=== PATIENT | female | born 1945 | race Caucasian/White ===

== ENCOUNTER 2017-06-15 08:44 | Observation (INO) | payer MEDICARE, BC ==
[2017-06-15] MEDS ORDERED: NORMAL SALINE 1,000 ML IV ONE (09:52)
[2017-06-15 10:08] LABS: Hematocrit 27.5 % (37.0-47.0); Hemoglobin 8.3 gm/dL (12.5-16.0); Mean Cell Volume 110.9 fl (78-100); Mean Corpuscular Hemoglobin 33.5 pg (27-31); Mean Corpuscular Hgb Conc 30.2 g/dl (32-36); Mean Platelet Volume 9.4 fl (6.0-9.5); NRBC# 0.1 k/mm3 (0-1); Neutrophil # 4.7 K/mm3 (1.3-6.0); Neutrophil % 69.7 % (42-75.0); Platelet Count 135 K/mm3 (150-450); Red Blood Count 2.48 M/mm3 (4.2-5.4); White Blood Count 6.8 K/mm3 (4.0-10.5)
[2017-06-15 10:09] LABS: Urine Bilirubin Negative (NEGATIVE); Urine Blood Negative /ul (NEGATIVE); Urine Ketone Negative (NEGATIVE); Urine Nitrite Negative (NEGATIVE); Urine Protein 15 mg/dL (NEGATIVE); Urine Urobilinogen Normal (NORMAL)
[2017-06-15 10:17] LABS: Urine Appearance Clear; Urine Bacteria None Seen; Urine Color Yellow; Urine RBC None Seen /hpf (0-5); Urine WBC None Seen /hpf (0-5)
[2017-06-15 10:20] LABS: Albumin * 3.8 gm/dl (3.4-5.0); BUN/Creatinine Ratio 7.4 (9.0-21.6); Bilirubin, Total 0.4 mg/dL (0.0-1.1); Ca. Corrected For Albumin 9.1 mg/dL (8.4-10.2); Calcium * 9.3 mg/dL (7.9-10.9); Carbon Dioxide 24.6 mmol/L (24-32.6); Potassium 3.6 mmol/L (3.4-4.6); Total Protein 7.7 gm/dL (6.2-8.2)
[2017-06-15] MEDS ORDERED: DIATRIZOATE MEGLUMINE, SODIUM 30 ML BTL ONE (10:57)
[2017-06-15 14:01] LABS: Hematocrit 24.9 % (37.0-47.0)
[2017-06-15 14:02] LABS: Hemoglobin 7.6 gm/dL (12.5-16.0)
--- NOTE | 2017-06-15 14:30 | ERNOTE ---
Medical Problem HPI - Narrative Date of Service: 06/15/17 - General Chief Complaint: Nausea/Vomiting Time Seen by Provider: 06/15/17 09:42 Source: patient, family Exam Limitations: no limitations - Immun/Allergies/Home Medications Immunizations: IMMUNIZATION HX Immunizations Up to Date Yes History of Influenza Vaccine No Hx Pneumococcal Vaccination Yes Allergies/Adverse Reactions: Allergies No Known Allergies Allergy (Verified 06/15/17 09:21) Home Medications: HOME MEDICATIONS Levothyroxine Sodium [Synthroid] 125 mcg PO DAILY 11/26/15 [Last Taken 11/26/15] Promethazine HCl 12.5 mg PO Q6H PRN 06/15/17 [Last Taken Unknown] - History of Present History Narrative: Patient presents to the ED for vomiting. She relates that she has been vomiting for the last month. She tries to eat and vomits. She was briefly hospitalized at [facility] 2 weeks ago. No abdominal pain. No fever. no blood in stool or vomit. nothing makes this better or worse. no CP or SOB. Timing: constant, getting worse Modifying Factors - (Improves): Present: other - nothing Modifying Factors - (Worsens): Present: other - eating Review of Systems - Review of Systems Constitutional: Absent: fever Respiratory: Absent: shortness of breath Cardiology: Absent: chest pain Gastrointestinal/Abdominal: Present: vomiting. Absent: abdominal pain Genitourinary: Absent: dysuria All Other Systems: All systems neg except as marked - Patient's Past Medical History Patient History - Medical: Diabetes Type 2, Hypothyroidism Patient History - Cardiac/Respiratory: Hypertension Patient History - Cancer: No Hx of Cancer Patient History - Surgical Procedures: Appendectomy, Cholecystectomy, Total Knee Replacement, Other, Hernia Repair Patient History - Other: None LMP (females 10-50): Menopausal - Family History Mother Family History - Medical: , Diabetes Type 2 Family History - Cardiac/Respiratory: Coronary Heart Disease Father Family History - Medical: Family History - Cardiac/Respiratory: CVA/Stroke - Social History Living Situations: home Abuse History: No History of abuse Psych History: No pertinent hx Smoking Status: Former smoker Have you smoked in the past 12 months: No Alcohol Use: none Drug Use: none - Immunizations Immunizations Up to Date: Yes Hx Pneumococcal Vaccination: Yes History of Influenza Vaccine: No Physical Exam - Physical Exam General Appearance: Present: alert, no apparent distress Head Exam: Present: normal inspection, no evidence of injury Eye Exam: Normal inspection: bilateral, PERRL: bilateral Ears, Nose, Throat: Present: normal ENT inspection Neck: Present: normal inspection Respiratory: Present: no respiratory distress Cardiovascular/Chest: Present: regular rate, rhythm, normal peripheral pulses Gastrointestinal/Abdominal: Present: normal bowel sounds, nontender, soft Back Exam: Absent: CVA tenderness (R), CVA tenderness (L) Extremity Exam: Present: other - no deformity Neurological Exam: Present: alert, normal mood/affect, no motor/sensory deficits Skin Exam: Present: normal color, warm/dry, other - with female RN presents large left breast mass. 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 ED Progress - Results and Orders Patient's Lab Results:: I have reviewed the patient's lab results. - Vital Signs Patient's Vital Signs:: I have reviewed the patient's vital signs. Vital Signs: Vital Signs 06/15/17 06/15/17 06/15/17 09:15 10:51 11:06 Temperature 36.6 C Pulse Rate 122 H 106 H 109 H Respiratory 16 Rate Blood Pressure 164/83 133/80 129/90 O2 Sat by Pulse 100 94 95 Oximetry 06/15/17 06/15/17 06/15/17 11:23 12:00 13:07 Temperature Pulse Rate 102 H 106 H 97 Respiratory 15 17 Rate Blood Pressure 145/85 146/85 O2 Sat by Pulse 97 98 97 Oximetry 06/15/17 06/15/17 13:17 13:30 Temperature Pulse Rate 94 89 Respiratory 16 Rate Blood Pressure 142/64 137/63 O2 Sat by Pulse 96 95 Oximetry - EKG EKG read: Interp. by me EKG Comments: Sinus Tach. Rate 104. Non-specific changes, no STEMI - CT/Ultrasound CT/Ultrasound Narrative: I reviewed CT report per radiology. - Progress/Reassessment Chief Complaint: Nausea/Vomiting Progress Note-Subjective: 06/15/17 14:27 IV fluids given. i spoke with Dr Gonzalez and Dr Barron. Dr Gonzalez will admit with consult to Dr Barron. Patient agreeable. Departure Clinical Impression: Vomiting, Anemia, Adrenal mass, left, Breast mass - Departure Disposition: [facility] Condition: Stable
[2017-06-15] MEDS ORDERED: FLU VACC QS2017-18(6MOS UP)/PF 60 MCG/0.5 ML SYRINGE IM ONE (15:41)
--- NOTE | 2017-06-15 16:16 | HP ---
Chief Complaint - Chief Complaint Date of Service: 06/15/17 Time of Service: 16:10 Chief Complaint: nausea/vomiting History of Present Illness: Shani Allen, is a 71-year-old white female, with previous medical history of hypertension, diabetes mellitus type 2, hyperlipidemia, hypothyroidism history of breast cancer who was admitted on 06/15/2017 because of persistent nausea and vomiting. The patient says that for the last 1 month she has been getting nauseous and started vomiting whenever she puts anything in her mouth. She started getting weaker and so she went to our emergency room today. Her Hb was 7.3 and her Na was 143. Her CTS of the abdomen and pelvis an enlarging left adrenal mass which could be malignant with possible metastasis to the spine. It also showed colitis vs diverticulitis. . She was admitted for further evaluation and treatment. - Patient's Past Medical History Patient History - Medical: Diabetes Type 2, Hypothyroidism Patient History - Cardiac/Respiratory: Hypertension Patient History - Cancer: No Hx of Cancer Patient History - Surgical Procedures: Appendectomy, Cholecystectomy, Total Knee Replacement, Other, Hernia Repair Patient History - Other: None LMP (females 10-50): Menopausal - Family History Mother Family History - Medical: , Diabetes Type 2 Family History - Cardiac/Respiratory: Coronary Heart Disease Family History - Cancer: No pertinent family hx Father Family History - Medical: Family History - Cardiac/Respiratory: CVA/Stroke Family History - Cancer: No pertinent family hx - Social History Living Situations: spouse Abuse History: No History of abuse Psych History: No pertinent hx Smoking Status: Former smoker Have you smoked in the past 12 months: No Do you dip or chew tobacco: No Patient requests Smoking Cessation Consult: No Initiate information on Smoking Cessation: No Alcohol Use: none Drug Use: none - Immunizations Immunizations Up to Date: Yes Hx Pneumococcal Vaccination: Yes History of Influenza Vaccine: No Review Of Systems (GEN) - Review of Systems Generalized/Overall Review: Present: Weakness. Absent: Chills, Fever EENTM: Present: No Symptoms Reported Respiratory: Present: Shortness of Breath. Absent: Cough, Orthopnea Cardiac: Absent: Chest Pain, Palpitations Abdominal: Present: Nausea, Vomiting. Absent: Abdominal Pain Genitourinary: Absent: Frequency, Hesitancy Musculoskeletal: Present: Joint Pain Neurological: Present: Headache Immunizations: IMMUNIZATION HX Immunizations Up to Date Yes History of Influenza Vaccine No Hx Pneumococcal Vaccination Yes Allergies/Adverse Reactions: Allergies Allergy/AdvReac Type Severity Reaction Status Date / Time No Known Allergies Allergy Verified 06/15/17 15:43 Home Medications: HOME MEDICATIONS Levothyroxine Sodium [Synthroid] 125 mcg PO DAILY 11/26/15 [Last Taken 11/26/15] Promethazine HCl 12.5 mg PO Q6H PRN 06/15/17 [Last Taken Unknown] Exam - Exam Vital Signs: Vital Signs - Last Taken Temp 36.6 C 06/15/17 15:36 Pulse 101 H 06/15/17 15:36 Resp 18 06/15/17 15:36 BP 155/75 06/15/17 15:36 Pulse Ox 98 06/15/17 15:36 Constitutional: Present: Alert, Oriented x3, Cooperative ENT Exam: Present: hearing grossly normal Eye Exam: bilateral eye: normal inspection, PERRL, EOMI Neck: Present: supple Back Exam: Present: no CVA tenderness Breasts: Present: Other - positive hard fixed mass with inverted nipple, left breast Cardiovascular/Chest: Present: regular rate, rhythm, no JVD, no murmur Abdomen: Present: Normal bowel sounds, soft, nontender, obese, other - equivocal mass Extremity: Present: no pedal edema, no calf tenderness Diagnostic Studies: Laboratory Results WBC 6.8 K/mm3 (4.0-10.5) 06/15/17 10:00 RBC 2.48 M/mm3 (4.2-5.4) L 06/15/17 10:00 Hgb 7.6 gm/dL (12.5-16.0) L* 06/15/17 13:55 Hct 24.9 % (37.0-47.0) L 06/15/17 13:55 MCV 110.9 fl (78-100) H 06/15/17 10:00 MCH 33.5 pg (27-31) H 06/15/17 10:00 MCHC 30.2 g/dl (32-36) L 06/15/17 10:00 RDW 17.0 % (11.5-14.0) H 06/15/17 10:00 Plt Count 135 K/mm3 (150-450) L 06/15/17 10:00 MPV 9.4 fl (6.0-9.5) 06/15/17 10:00 Immature Gran % (Auto) 3.00 % (0.001-0.429) H 06/15/17 10:00 Immature Gran # (Auto) 0.20 K/mm3 (0.000-0.0310) H 06/15/17 10:00 Neutrophils % 69.7 % (42-75.0) 06/15/17 10:00 Lymphocytes % 20.1 % (20-51) 06/15/17 10:00 Monocytes % 5.8 % (0.0-9) 06/15/17 10:00 Eosinophils % 0.7 % (0.0-3.0) 06/15/17 10:00 Basophils % 0.7 % (0.0-1.0) 06/15/17 10:00 Nucleated RBC % 0.1 k/mm3 (0-1) 06/15/17 10:00 Neutrophils # 4.7 K/mm3 (1.3-6.0) 06/15/17 10:00 Lymphocytes # 1.4 k/mm3 (1.5-3.5) L 06/15/17 10:00 Monocytes # 0.4 k/mm3 (0.0-1.0) 06/15/17 10:00 Eosinophils # 0.1 k/mm3 (0.0-0.7) 06/15/17 10:00 Absolute Basophils 0.1 k/mm3 (0.0-0.1) 06/15/17 10:00 Sodium 141 mmol/L (132-142) 06/15/17 10:00 Plasma Sodium 143 mmol/L (130-142) H 06/15/17 10:00 Potassium 3.6 mmol/L (3.4-4.6) 06/15/17 10:00 Chloride 104 mmol/L (97-106) 06/15/17 10:00 Carbon Dioxide 24.6 mmol/L (24-32.6) 06/15/17 10:00 Anion Gap 16.0 mmol/L (6.8-13.8) H 06/15/17 10:00 BUN 10 mg/dL (3-23) 06/15/17 10:00 Creatinine 1.36 mg/dL (0.4-1.4) 06/15/17 10:00 Est GFR (Non-Af Amer) 41 mL/min (60-130) L 06/15/17 10:00 BUN/Creatinine Ratio 7.4 (9.0-21.6) L 06/15/17 10:00 Random Glucose 204 mg/dL (70-110) H 06/15/17 10:00 Calcium 9.3 mg/dL (7.9-10.9) 06/15/17 10:00 Calcium Adj for Albumin 9.1 mg/dL (8.4-10.2) 06/15/17 10:00 Total Bilirubin 0.4 mg/dL (0.0-1.1) 06/15/17 10:00 AST 16 U/L (0-48) 06/15/17 10:00 ALT 14 U/L (19-67) L 06/15/17 10:00 Alkaline Phosphatase 94 U/L (50-170) 06/15/17 10:00 Troponin I Less than 0.017 ng/ml (0.00-0.10) 06/15/17 10:00 Total Protein 7.7 gm/dL (6.2-8.2) 06/15/17 10:00 Albumin 3.8 gm/dl (3.4-5.0) 06/15/17 10:00 Lipase 211 U/L (73-393) 06/15/17 10:00 Urine Color Yellow 06/15/17 09:55 Urine Appearance Clear 06/15/17 09:55 Urine pH 6.0 pH (5.0-7.0) 06/15/17 09:55 Ur Specific [place] 1.020 SP.GR. (1.005-1.010) 06/15/17 09:55 Urine Protein 15 mg/dL (NEGATIVE) H 06/15/17 09:55 Urine Glucose (UA) Negative mg/dL (NEGATIVE) 06/15/17 09:55 Urine Ketones Negative mg/dL (NEGATIVE) 06/15/17 09:55 Urine Blood Negative /ul (NEGATIVE) 06/15/17 09:55 Urine Nitrate Negative (NEGATIVE) 06/15/17 09:55 Urine Bilirubin Negative mg/dl (NEGATIVE) 06/15/17 09:55 Prot Sulfosalicylic Acd Negative mg/dL (0) 06/15/17 09:55 Urine Urobilinogen Normal EU/dl (NORMAL) 06/15/17 09:55 Ur Leukocyte Esterase Negative /ul (NEGATIVE) 06/15/17 09:55 Urine RBC None seen /hpf (0-5) 06/15/17 09:55 Urine WBC None seen /hpf (0-5) 06/15/17 09:55 Ur Epithelial Cells None seen /hpf (0-5) 06/15/17 09:55 Urine Bacteria None seen (NONE) 06/15/17 09:55 Urine Culture Comments No culture indicated 06/15/17 09:55 Stool Occult Blood Negative 06/15/17 11:37 Blood Type A Negative 06/15/17 13:55 Antibody Screen Negative 06/15/17 13:55 Assessment/Plan - Assessment/Plan (1) Nausea & vomiting Assessment: will keep patient NPO. continue with IVF. start IV protonix. get consult with Dr. Barron for possible EGD. Problem: Chronic Qualifiers: Vomiting Intractability: intractable (2) Colitis Assessment: vs diverticultis. will keep patient NPO. get cosnult with Dr. Barron. start IV Cipro/Flagyl Problem: Suspected (3) Adrenal mass, left Assessment: will do hormonal studies to see if functioning on outpatient basis . refer her to endocrinology in [facility]. Problem: Chronic (4) Anemia Assessment: do stool for occult blood and anemia work up. will get consult with Dr. Barron for possible endoscopic procedure Problem: Chronic Qualifiers: Anemia type: unspecified type Qualified Code(s): D64.9 - Anemia, unspecified (5) Breast mass Assessment: refuses mammogram. has a h/o breast cancer- DCIS. Problem: Chronic (6) Diabetes mellitus type 2 in obese Problem: Chronic (7) Hypothyroidism Problem: Chronic (8) Hypertension Problem: Chronic Qualifiers: Hypertension type: essential hypertension Qualified Code(s): I10 - Essential (primary) hypertension
[2017-06-15] MEDS ORDERED: ONDANSETRON HCL/PF 2 MG/ML VIAL IV PRN (16:38)
[2017-06-15] MEDS: PANTOPRAZOLE SODIUM 40 MG in NORMAL SALINE 100 ML IV SCH (16:59)
[2017-06-15 17:24] LABS: Hemoglobin A1C 5.5 % (4.00-6.0)
[2017-06-15 17:29] LABS: Iron 108 mcg/dL (35-120); Transferrin Sat. (% Sat.) 37 % (15-55)
[2017-06-15] MEDS: CIPROFLOXACIN IN 5 % DEXTROSE 400 MG/200 ML BAG IV SCH (17:40)
[2017-06-15] MEDS ORDERED: ACETAMINOPHEN 325 MG TABLET PO PRN (17:48)
[2017-06-15 18:14] LABS: Folate 4.2 ng/mL (>5.4)
--- NOTE | 2017-06-15 18:23 | CONS ---
[facility] - General Date of Service: 06/15/17 Source: patient, RN/MD, RN notes reviewed, old records Exam Limitations: no limitations - History of Present Illness Timing/Duration: other - She has been having pernicious vomiting after almost all po intake for " a long time" Marked weight loss "down to small pants" Modifying Factors - (Worsens): Reports: eating Modifying Factors - (Improves): Reports: other - not eating Allergies/Adverse Reactions: Allergies No Known Allergies Allergy (Verified 06/15/17 15:43) Home Medications: Home Medications Medication Instructions Recorded Last Taken Levothyroxine Sodium [Synthroid] 125 mcg PO DAILY 11/26/15 11/26/15 Promethazine HCl 12.5 mg PO Q6H PRN 06/15/17 Unknown - Patient's Past Medical History Patient History - Medical: Diabetes Type 2, Hypothyroidism, Other - Lobular carcinoma of left breast--excisional biopsy 2007 ?positive margin, no adjuvant treatment Patient History - Cardiac/Respiratory: Hypertension Patient History - Cancer: No Hx of Cancer Patient History - Surgical Procedures: Appendectomy, Cancer Surgery - left breast excisional biopsy, Cholecystectomy, Total Knee Replacement, Other, Hernia Repair Patient History - Other: None LMP (females 10-50): Menopausal - Family History Mother Family History - Medical: , Diabetes Type 2 Family History - Cardiac/Respiratory: Coronary Heart Disease Family History - Cancer: No pertinent family hx Father Family History - Medical: Family History - Cardiac/Respiratory: CVA/Stroke Family History - Cancer: No pertinent family hx - Social History Living Situations: spouse Abuse History: No History of abuse Psych History: No pertinent hx Smoking Status: Former smoker Have you smoked in the past 12 months: No Do you dip or chew tobacco: No Patient requests Smoking Cessation Consult: No Initiate information on Smoking Cessation: No Alcohol Use: none Drug Use: none - Immunizations Immunizations Up to Date: Yes Hx Pneumococcal Vaccination: Yes History of Influenza Vaccine: No Procedures LOCAL EXCIS BREAST LES (03/11/08) Medications - Medications Current Medications: Current Medications Pantoprazole Sodium 40 mg/ (Sodium Chloride) 100 mls @ 400 mls/hr IV Q24H DELFINA Stop: 07/15/17 16:46 Last Admin: 06/15/17 16:59 Dose: 400 mls/hr Ciprofloxacin/Dextrose (Cipro) 400 mg in 200 mls @ 200 mls/hr IV Q12H DELFINA PRN Reason: Protocol Stop: 07/15/17 16:46 Last Admin: 06/15/17 17:40 Dose: 200 mls/hr Review of Systems - Review of Systems Generalized/Overall Review: Present: Weakness, Fatigue, Weight loss EENTM: Present: No Symptoms Reported Respiratory: Present: No Symptoms Reported Cardiac: Present: No Symptoms Reported Abdominal: Present: Nausea, Vomiting. Absent: Abdominal Pain Genitourinary: Present: No Symptoms Reported Musculoskeletal: Present: Back Pain Neurological: Present: Headache Skin: Present: No Symptoms Reported Physical Examination - Exam Vital Signs: Vital Signs - Last Taken Temp 36.6 C 06/15/17 15:36 Pulse 99 06/15/17 16:21 Resp 18 06/15/17 15:36 BP 155/75 06/15/17 15:36 Pulse Ox 98 06/15/17 15:36 O2 Oxygen Delivery Method Room Air Constitutional: Present: Alert, Oriented x3, Cooperative, Mild distress ENT Exam: Present: normal ENT inspection Eye Exam: bilateral eye: normal inspection Neck: Present: full range of motion Breasts: Present: Other - large hard left breast mass with skin changes, no ulceration Cardiovascular/Chest: Present: regular rate, rhythm Abdomen: Present: soft, nontender, obese, other - eventration in area of mesh hernia patch Skin Exam: Present: pallor Neurologic: Present: 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 Could be chronic GI blood loss or marrow problem----studies pending Problem: Chronic Qualifiers: Anemia type: unspecified type Qualified Code(s): D64.9 - Anemia, unspecified (3) Colitis Diagnosis(s): Patient has normal WBC. denies abdominal pain and states bowels regular. The CT report states findings to suggest inflammation are equivocal only Problem: Suspected (4) Nausea & vomiting Diagnosis(s): She may have gastropathy, gastroparesis, or pyloric narrowing. The anemia may be from chronic gastric bleeding. Pamphlets on EGD were reviewed and given. Scheduled for EGD in AM----biopsies and possible dilation if pyloris narrow Problem: Chronic Qualifiers: Vomiting Intractability: intractable (5) Breast mass Diagnosis(s): known previous infiltrating lobular carcinoma with possible positive margin Problem: Chronic
[2017-06-15] MEDS: metroNIDAZOLE/SODIUM CHLORIDE 500 MG/100 ML BAG IV SCH (18:48)
[2017-06-16] MEDS: metroNIDAZOLE/SODIUM CHLORIDE 500 MG/100 ML BAG IV SCH ×2 (02:07→10:35)
[2017-06-16] MEDS: CIPROFLOXACIN IN 5 % DEXTROSE 400 MG/200 ML BAG IV SCH (04:37)
[2017-06-16 06:18] LABS: Mean Corpuscular Hemoglobin 33.3 pg (27-31); Mean Corpuscular Hgb Conc 30.3 g/dl (32-36); Mean Platelet Volume 9.4 fl (6.0-9.5); NRBC# 0.1 k/mm3 (0-1); Neutrophil # 3.1 K/mm3 (1.3-6.0); Neutrophil % 68.5 % (42-75.0); Platelet Count 93 K/mm3 (150-450); Red Cell Distribution Width 16.5 % (11.5-14.0); White Blood Count 4.5 K/mm3 (4.0-10.5)
[2017-06-16 06:23] LABS: Hematocrit 23.1 % (37.0-47.0)
[2017-06-16] MEDS ORDERED: diphenhydrAMINE HCL 50 MG/ML VIAL IV ONE ×2 (06:25→12:31)
[2017-06-16] MEDS ORDERED: ACETAMINOPHEN 325 MG TABLET PO ONE (06:25)
[2017-06-16] MEDS ORDERED: FUROSEMIDE 10 MG/ML VIAL IV PRN (06:25)
[2017-06-16] MEDS ORDERED: ACETAMINOPHEN 325 MG TABLET PO PRN (06:41)
[2017-06-16] MEDS ORDERED: diphenhydrAMINE HCL 50 MG/ML VIAL IV PRN (06:42)
--- NOTE | 2017-06-16 07:06 | PN ---
Subjective - Date and Time Seen Date: 06/16/17 Time: 06:35 Subjective Narrative: Patient seen today in bed AOX3 no acute distress, she denies dizziness, rectal bleeding. pt stated she had bowel movement but it was very loose and no melena. pt agreeable to blood transfusion, plan of care discussed with pt she verbalized understanding and agrees. Objective - Review of Systems Generalized/Overall Review: Reports: No Symptoms Reported EENTM: Reports: No Symptoms Reported Respiratory: Reports: No Symptoms Reported Cardiac: Reports: No Symptoms Reported Abdominal: Reports: No Symptoms Reported Genitourinary Symptoms: Reports: No Symptoms Reported Musculoskeletal Complaints: Reports: No Symptoms Reported Neurological: Reports: No Symptoms Reported Skin: Reports: No Symptoms Reported Endocrine: Reports: No Symptoms Reported - Vitals Vitals: Last Vital Signs Temp 36.7 C 06/16/17 02:52 Pulse 82 06/16/17 02:52 Resp 18 06/16/17 02:52 BP 124/62 06/16/17 02:52 Pulse Ox 95 06/16/17 02:52 - Abnormal Lab Findings Abnormal Lab Findings: Abnormal Lab Results 06/16/17 Range/Units 06:16 RBC 2.10 L (4.2-5.4) M/mm3 Hgb 7.0 L* (12.5-16.0) gm/dL Hct 23.1 L* (37.0-47.0) % MCV 110.0 H (78-100) fl MCH 33.3 H (27-31) pg MCHC 30.3 L (32-36) g/dl RDW 16.5 H (11.5-14.0) % Plt Count 93 L (150-450) K/mm3 Immature Gran % (Auto) 2.20 H (0.001-0.429) % Immature Gran # (Auto) 0.10 H (0.000-0.0310) K/mm3 Lymphocytes # 1.0 L (1.5-3.5) k/mm3 - Exam Constitutional: Present: Alert, Oriented x3, Cooperative, Well developed, Middle aged ENT Exam: Present: hearing grossly normal Neck: Present: full range of motion Breasts: Present: Other - left breast mass Respiratory: Present: chest non-tender, normal breath sounds, no respiratory distress Cardiovascular/Chest: Present: normal peripheral pulses, regular rate, rhythm, no chest tenderness, no edema Abdomen: Present: Normal bowel sounds, soft, nontender, nondistended, hernia /Rectal: Present: Exam deferred Extremity: Present: normal range of motion Skin Exam: Present: normal color, warm/dry, no cyanosis Neurologic: Present: oriented x 3 Appearance: Present: appropriate appearance, appropriate insight Eye contact: Present: cooperative, good eye contact Assessment/Plan Plan Narrative: Anemia stool for occult blood pending On adm hgb 7.6---->7.0 Plan to transfuse 2UPRBC and monitor H/H 1hr post transfusion Nausea & vomiting- resolved Pt reporting having nausea and vomiting x1 month Keep NPO and continue with IVF hydration pt denies N/V overnight Colitis vs diverticultis. will keep patient NPO. Dr. Barron. Continue with IV Cipro/Flagyl Adrenal mass, left Seen on CT Enlarging large adrenal mass will do hormonal studies to see if functioning on outpatient basis . Refer her to endocrinology in [facility]. Left Breast mass Refuses mammogram. Diabetes mellitus type 2 in obese Accu-check AC+HS Resume home medication Hypothyroidism- stable Problem: Chronic Continue home medications Hypertension- stable May resume home medications Code status: DNR VTEppx: SCD GI ppx: Protonix Time 25 minutes - Problems/Diagnosis (1) Adrenal mass, left Problem: Chronic (2) Anemia Problem: Chronic Qualifiers: Anemia type: unspecified type Qualified Code(s): D64.9 - Anemia, unspecified (3) Breast mass Problem: Chronic (4) Diabetes mellitus type 2 in obese Problem: Chronic (5) Hypertension Problem: Chronic Qualifiers: Hypertension type: essential hypertension Qualified Code(s): I10 - Essential (primary) hypertension (6) Hypothyroidism Problem: Chronic (7) Nausea & vomiting Problem: Chronic Qualifiers: Vomiting Intractability: intractable
[2017-06-16] MEDS: LEVOTHYROXINE SODIUM 125 MCG TABLET PO SCH (07:30)
[2017-06-16] MEDS ORDERED: RINGER'S SOLUTION,LACTATED 1,000 ML IV ONE (11:15)
[2017-06-16] MEDS ORDERED: METHYLPREDNISOLONE SOD SUCC/PF 40 MG/ML VIAL IV ONE (12:30)
[2017-06-16] MEDS ORDERED: WATER FOR INJ BACTERIOSTATIC IV ONE (12:45)
[2017-06-16] MEDS ORDERED: METHYLPREDNISOLONE SOD SUCC IV ONE (12:45)
[2017-06-16] MEDS: PANTOPRAZOLE SODIUM 40 MG in NORMAL SALINE 100 ML IV SCH (16:10)
[2017-06-16 17:22] LABS: Hematocrit 32.3 % (37.0-47.0); Hemoglobin 10.3 gm/dL (12.5-16.0)
--- NOTE | 2017-06-17 06:41 | PN ---
Subjective - Date and Time Seen Date: 06/17/17 Time: 06:33 Subjective Narrative: Patient seen today in bed AOX3 no acute distress, she denies melena,nausea, vomiting and tolerated CLD last night. pt anticipating discharge home later today. plan of care discussed she verbalized understanding and agrees. Objective - Review of Systems Generalized/Overall Review: Reports: No Symptoms Reported EENTM: Reports: No Symptoms Reported Respiratory: Reports: No Symptoms Reported Cardiac: Reports: No Symptoms Reported Abdominal: Reports: No Symptoms Reported Genitourinary Symptoms: Reports: No Symptoms Reported Musculoskeletal Complaints: Reports: No Symptoms Reported Neurological: Reports: No Symptoms Reported Skin: Reports: No Symptoms Reported Endocrine: Reports: No Symptoms Reported - Vitals Vitals: Last Vital Signs Temp 37.0 C 06/17/17 02:00 Pulse 76 06/17/17 02:56 Resp 16 06/17/17 02:00 BP 148/76 06/17/17 02:00 Pulse Ox 92 06/17/17 02:00 - Abnormal Lab Findings Abnormal Lab Findings: Abnormal Lab Results 06/16/17 Range/Units 17:20 Hgb 10.3 L (12.5-16.0) gm/dL Hct 32.3 L (37.0-47.0) % - Exam Constitutional: Present: Alert, Oriented x3, Cooperative, Well developed, No distress ENT Exam: Present: hearing grossly normal Neck: Present: full range of motion Breasts: Present: Other - left breast lobular mass Respiratory: Present: chest non-tender, lungs clear, normal breath sounds, no respiratory distress Cardiovascular/Chest: Present: normal peripheral pulses, regular rate, rhythm, no chest tenderness, no edema Abdomen: Present: Normal bowel sounds, soft, nontender, nondistended, no rebound tenderness, hernia /Rectal: Present: Exam deferred Extremity: Present: normal range of motion, non-tender, normal inspection, no pedal edema Skin Exam: Present: normal color, warm/dry, no cyanosis Neurologic: Present: oriented x 3 Appearance: Present: appropriate appearance Eye contact: Present: cooperative Thoughts: Present: normal thought pattern Assessment/Plan Plan Narrative: Colitis vs diverticultis. S/P EGD - gastritis , bleeding possible was from the gastritis Full Liquid diet Dr. Barron following. Continue with IV Cipro/Flagyl Anemia- resolving stool for occult blood pending On adm hgb 7.6---->7.0---->10.3 Plan to transfuse 2UPRBC and monitor H/H 1hr post transfusion Nausea & vomiting- resolved Pt reporting having nausea and vomiting x1 month Keep NPO and continue with IVF hydration pt denies N/V overnight Adrenal mass, left Seen on CT Enlarging large adrenal mass will do hormonal studies to see if functioning on outpatient basis . Refer her to endocrinology in [facility]. Left Breast mass Refuses mammogram. Diabetes mellitus type 2 in obese Accu-check AC+HS Resume home medication Hypothyroidism- stable Problem: Chronic Continue home medications Hypertension- stable May resume home medications Code status: DNR VTEppx: SCD GI ppx: Protonix Time 20 minutes - Problems/Diagnosis (1) Adrenal mass, left Problem: Chronic (2) Anemia Problem: Chronic Qualifiers: Anemia type: unspecified type Qualified Code(s): D64.9 - Anemia, unspecified (3) Breast mass Problem: Chronic (4) Diabetes mellitus type 2 in obese Problem: Chronic (5) Hypertension Problem: Chronic Qualifiers: Hypertension type: essential hypertension Qualified Code(s): I10 - Essential (primary) hypertension (6) Hypothyroidism Problem: Chronic (7) Nausea & vomiting Problem: Chronic Qualifiers: Vomiting Intractability: intractable
[2017-06-17] MEDS: LEVOTHYROXINE SODIUM 125 MCG TABLET PO SCH (07:03)
[2017-06-17 08:07] VITALS: BP 148/82
--- NOTE | 2017-06-17 10:13 | OR ---
Operative Report - Dictated Report Narrative: Operative Report Date of operation: 06/16/2017 Preoperative diagnosis: Anemia. Nausea vomiting Postoperative diagnosis: Hiatal hernia. Severe gastritis with healing superficial ulcerations. Duodenitis with healing superficial ulcerations. ( pathology and CLOtest pending) Operation: EGD with biopsies Surgeon: Dr Barron Anesthesia: EUN IBARRA CRNA Indications for procedure: The patient is a 71-year-old female with pernicious nausea and vomiting and anemia Findings: Hiatal hernia, severe gastropathy with evidence of chronic bleeding. Severe duodenitis. Narrative of procedure: The patient was identified preoperatively, and prior to the administration of anesthetic a multidisciplinary timeout was observed With the patient in the recumbent position, a bite-block was placed, intravenous sedation administered, and the patient's eyes covered with a towel. The flexible fiberoptic gastroscope was advanced into the posterior pharynx which appeared normal. The supraglottic larynx appeared markedly edematous with swelling of the false vocal cords. The cords appeared normal, moved well, and opposed in the midline. The scope was advanced under direct vision into the proximal esophagus which appeared normal. The esophagus appeared freely distensible with normal mucosa. The esophageal mucosa appeared normal down to the gastroesophageal junction which was sharp with mild inflammation. There was a large sliding hiatal hernia. There was bleeding from the GE junction but no Lexi-Nolasco tear or varices. The GE junction appeared normally distensible. The scope was advanced into the stomach which was insufflated with air. Immediately apparent was severe distal gastritis with edema. There were several areas of small superficial healing ulcerations. Retroflex view of the gastric fundus revealed gutierrez gastropathy and demonstrated the hiatal hernia. Scope was redirected toward the pylorus. The pylorus appeared patent. The scope was advanced into the duodenal bulb which appeared inflamed with edema and very small superficial areas of healing ulceration. There was retropulsion of the duodenal mucosa and bile reflux with contractions. The scope was advanced further to the horizontal portion of the duodenum which appeared normal , specifically the villous architecture appeared well preserved and clear bile was present. The scope was slowly withdrawn through the duodenal bulb with confirmation that no active ulcer was present. The scope was withdrawn into the stomach and accounting representative biopsies of gastric mucosa obtained for CLOtest and pathology. The biopsy sites were seen to be hemostatic. The insufflated air was removed from the the stomach , and the scope withdrawn into the hiatal hernia segment. Again bleeding from the GE junction was noted however no kristen bleeding site could be identified and the bleeding was minimal. The scope was withdrawn from the patient, and the procedure terminated. The patient tolerated the anesthetic and procedure well without complication and was transferred back to her room awake and in stable condition. Reviewed and electronically signed
--- NOTE | 2017-06-17 10:24 | DS ---
(1) Nausea & vomiting Problem: Resolved Qualifiers: Vomiting Intractability: intractable (2) Colitis Diagnosis(s): vs diverticulitis, unlikelydue to paucity GIT symptoms. Problem: Suspected (3) Adrenal mass, left Problem: Chronic (4) Anemia Diagnosis(s): s/p BT Problem: Chronic Qualifiers: Anemia type: unspecified type Qualified Code(s): D64.9 - Anemia, unspecified (5) Breast mass Diagnosis(s): Breast Cancer Problem: Chronic (6) Diabetes mellitus type 2 in obese Problem: Chronic (7) Hypothyroidism Problem: Chronic (8) Hypertension Problem: Chronic Qualifiers: Hypertension type: essential hypertension Qualified Code(s): I10 - Essential (primary) hypertension Description of Stay: Shani Allen, is a 71-year-old white female, with previous medical history of hypertension, diabetes mellitus type 2, hyperlipidemia, hypothyroidism history of breast cancer who was admitted on 06/15/2017 because of persistent nausea and vomiting. The patient says that for the last 1 month she has been getting nauseous and started vomiting whenever she puts anything in her mouth. She started getting weaker and so she went to our emergency room today. Her Hb was 7.3 and her Na was 143. Her CTS of the abdomen and pelvis an enlarging left adrenal mass which could be malignant with possible metastasis to the spine. It also showed probable colitis vs diverticulitis. . She was admitted and was started on IV Cipro flagyl/Cipro and IV Protonix. Her Hb went down to 7 and she was ransfued [address] Barron was consulted and he performed an EGD which showed severe gastritis/duodenitis with superficial erosions which was likely the source of her anemia. He also saw larynreal edema. Her IV Cipro / Flagy were stopped and she was given IV solumedrol and benadryl. She is doing better this morniong and is tolerating full liquids from clear liquids. We will discharge her today and will refer her to [facility] fo her breast cancer, adrenal mass, and possible mets to the spine. . Procedures Performed: see notes below List Procedures: EGD with biopsy Discharge Disposition: Home self care Disposition: Home self-care Condition: Stable Discharge Diet: Full Liquids - then progress to soft diet as tolerated Referrals: Oetken,Victoria Y, DO [Primary Care Provider] - Problem Oriented Discharge Instructions to Patient/Family: Hypertension, Easy- to-Read Additional Patient Instructions (free text): Please make a TCM appointment as discharge, if applicable. Thank you! Sita at ext [phone]. Follow up appointment with Dr. Bueno on 06/24/17 at 2:00pm. Make outpatient appt. with [facility] Oncology/Hematology and Endocrine please. Prescriptions (Any new or edited meds): Acetaminophen [Tylenol] 650 mg PO Q6H PRN #30 tablet PRN Reason: Pain/Fever Pantoprazole Sodium [Protonix] 40 mg PO DAILY #30 tab Complete Home Medications List: Complete Home Medication List: Levothyroxine Sodium [Synthroid] 125 mcg PO DAILY 11/26/15 Promethazine HCl 12.5 mg PO Q6H PRN 06/15/17 Acetaminophen [Tylenol] 650 mg PO Q6H PRN #30 tablet 06/17/17 Pantoprazole Sodium [Protonix] 40 mg PO DAILY #30 tab 06/17/17
[2017-06-17 17:32] LABS: P-ANCA Titer DNR titer (<1:20)
== END 2017-06-17 12:07 | disposition home or self-care (01) ==
LOC: ER 08:44 → MS 14:18
PROVIDERS: ADMIT Internal Medicine; ATTEND Internal Medicine
PROC: 0DB68ZZ Excision of Stomach, Via Natural or Artificial Opening Endoscopic (ICD-10-PCS; principal; 2017-06-16 11:15)
DX: K29.00 Acute gastritis without bleeding (principal); D64.9 Anemia, unspecified; E11.9 Type 2 diabetes mellitus without complications; R11.2 Nausea with vomiting, unspecified; K52.9 Noninfective gastroenteritis and colitis, unspecified; R19.09 Other intra-abdominal and pelvic swelling, mass and lump; C50.912 Malignant neoplasm of unspecified site of left female breast; I10 Essential (primary) hypertension; E03.9 Hypothyroidism, unspecified; E78.5 Hyperlipidemia, unspecified; Z87.891 Personal history of nicotine dependence; Z23 Encounter for immunization
CPT/HCPCS: 36415; 43239; 74177; 80053; 81001; 82272; 82607; 82728; 82746; 83036; 83540; 83550; 83690; 84466; 84484; 85014; 85018; 85025; 86021; 86850; 86900; 87040; 87081; 88305; 88312; 88313; 90686; 93005; 96365; 96366; 96367; 96375; 96376; 99284; G0008; G0378; J2405; P9016

== ENCOUNTER 2017-08-20 10:09 | Emergency (ER) | payer MEDICARE, BC ==
[2017-08-20] MEDS ORDERED: MORPHINE SULFATE 2 MG/ML DISP.SYRIN IV ONE (10:55)
[2017-08-20] MEDS ORDERED: ONDANSETRON HCL/PF 2 MG/ML VIAL IV ONE (10:55)
--- NOTE | 2017-08-20 10:56 | ERNOTE ---
Medical Problem HPI - Narrative Date of Service: 08/20/17 - General Chief Complaint: General Assessment Time Seen by Provider: 08/20/17 10:48 Source: patient, family, RN notes reviewed, old records Exam Limitations: no limitations - Immun/Allergies/Home Medications Immunizations: IMMUNIZATION HX Immunizations Up to Date Yes History of Influenza Vaccine No Hx Pneumococcal Vaccination Yes Allergies/Adverse Reactions: Allergies No Known Allergies Allergy (Verified 08/20/17 10:22) Home Medications: HOME MEDICATIONS Levothyroxine Sodium [Synthroid] 125 mcg PO DAILY 11/26/15 [Last Taken 11/26/15] Promethazine HCl 12.5 mg PO Q6H PRN 06/15/17 [Last Taken Unknown] Acetaminophen [Tylenol] 650 mg PO Q6H PRN #30 tablet 06/17/17 [Last Taken Unknown] Pantoprazole Sodium [Protonix] 40 mg PO DAILY #30 tab 06/17/17 [Last Taken Unknown] Ondansetron [Zofran Odt] 8 mg PO Q8H PRN #12 tab 08/20/17 [Last Taken Unknown] oxyCODONE HCL/ACETAMINOPHEN [Oxycodone-Acetaminophen 5-325] 1 each PO Q6H PRN # 20 tablet 08/20/17 [Last Taken Unknown] - History of Present History Narrative: 71 year old female brought to the ED by her for weakness and fatigue. She is also having low back pain. She has multiple myeloma and is supposed to be starting chemotherapy soon. She was recently hospitalized with a hemoglobin of 7. She was found to have gastritis on EGD but no specific GI bleeding. She states that she is probably anemic again. She denies vomiting or diarrhea but has been having nausea. She has been taking Tylenol for pain. Review of Systems - Review of Systems Constitutional: Present: weakness, fatigue, malaise, decreased activity level. Absent: fever, chills EYE: Present: no symptoms reported ENT: Present: no symptoms reported Respiratory: Absent: shortness of breath, cough Cardiology: Absent: chest pain, palpitations, syncope, edema Gastrointestinal/Abdominal: Present: nausea. Absent: vomiting, diarrhea, abdominal pain Genitourinary: Absent: dysuria, hematuria Musculoskeletal: Present: back pain, muscle pain. Absent: neck pain, joint swelling Skin: Absent: rash, lesions Neurological: Absent: headache, dizziness/light-headedness Endocrine: Present: no symptoms reported Hematologic/Lymphatic: Absent: easy bruising, easy bleeding Psych: Present: no symptoms reported - Patient's Past Medical History Patient History - Medical: Diabetes Type 2, Hypothyroidism Patient History - Cardiac/Respiratory: Hypertension Patient History - Cancer: Breast, Myeloma Patient History - Surgical Procedures: Appendectomy, Cholecystectomy, EGD, Total Knee Replacement, Other - Lumpectomy, Hernia Repair Patient History - Other: None LMP (females 10-50): Menopausal - Family History Mother Family History - Medical: , Diabetes Type 2 Family History - Cardiac/Respiratory: Coronary Heart Disease Family History - Cancer: No pertinent family hx Father Family History - Medical: Family History - Cardiac/Respiratory: CVA/Stroke Family History - Cancer: No pertinent family hx - Social History Living Situations: spouse Abuse History: No History of abuse Psych History: No pertinent hx - Immunizations Immunizations Up to Date: Yes Hx Pneumococcal Vaccination: Yes History of Influenza Vaccine: No Physical Exam - Physical Exam General Appearance: Present: wd/wn, alert, no apparent distress Neck: Present: normal inspection, nontender, supple Respiratory: Present: no respiratory distress, normal breath sounds, no accessory muscle use, lungs clear Cardiovascular/Chest: Present: no murmur, normal peripheral pulses, tachycardia Extremity Exam: Present: normal inspection, normal range of motion Neurological Exam: Present: alert, oriented, normal mood/affect, no motor/ sensory deficits Skin Exam: Present: warm/dry, pallor ED Progress - Results and Orders Patient's Lab Results:: I have reviewed the patient's lab results. - Vital Signs Patient's Vital Signs:: I have reviewed the patient's vital signs. Vital Signs: Vital Signs 08/20/17 10:16 Temperature 36.2 C L Pulse Rate 119 H Respiratory 12 Rate Blood Pressure 114/56 O2 Sat by Pulse 100 Oximetry - Progress/Reassessment Chief Complaint: General Assessment Progress:: Improved Progress Note-Subjective: 08/20/17 12:[address] Sullivan regarding impaired renal function and possible admission. She recommended giving a 2 L fluid bolus here and rechecking the patient's creatinine. Fluids ordered. Plan - Plan Plan: Patient reports feeling better after 2 L of NS. Her creatinine has dropped from 2.47 to 2.19. She currently denies any pain after having Morphine 2 mg IVP. To have BMP done on Tuesday, patient in agreement with plan. Departure Clinical Impression: Low back pain Qualifiers: Chronicity: chronic Back pain laterality: unspecified Sciatica presence: without sciatica Qualified Code(s): M54.5 - Low back pain Acute renal failure Qualifiers: Acute renal failure type: unspecified Qualified Code(s): N17.9 - Acute kidney failure, unspecified Multiple myeloma Qualifiers: Multiple myeloma remission status: not in remission Qualified Code(s): C90.00 - Multiple myeloma not having achieved remission - Departure Disposition: Home Follow Up Needed Condition: Stable Instructions: Acute Kidney Injury Additional Instructions: Contact Dr. Bueno to repeat your labs on Tuesday Drink more liquids - at least 8 glasses a day (water would be helpful) Return to ER if symptoms worsen Referrals: Victoria Bueno, [Primary Care Provider] - Prescriptions: Ondansetron [Zofran Odt] 8 mg PO Q8H PRN #12 tab PRN Reason: Nausea oxyCODONE HCL/ACETAMINOPHEN [Oxycodone-Acetaminophen 5-325] 1 each PO Q6H PRN # 20 tablet PRN Reason: Pain
[2017-08-20] MEDS ORDERED: MORPHINE SULFATE 4 MG/ML SYRG ONE (11:12)
[2017-08-20] MEDS ORDERED: ONDANSETRON HCL/PF 2 MG/ML VIAL ONE (11:12)
[2017-08-20 11:15] LABS: Hematocrit 26.6 % (37.0-47.0); Hemoglobin 8.6 gm/dL (12.5-16.0); Mean Cell Volume 101.1 fl (78-100); Mean Corpuscular Hemoglobin 32.7 pg (27-31); Mean Corpuscular Hgb Conc 32.3 g/dl (32-36); Mean Platelet Volume 8.7 fl (6.0-9.5); Neutrophil # 4.3 K/mm3 (1.3-6.0); Neutrophil % 68.9 % (42-75.0); Platelet Count 176 K/mm3 (150-450); Red Blood Count 2.63 M/mm3 (4.2-5.4); Red Cell Distribution Width 18.6 % (11.5-14.0); White Blood Count 6.3 K/mm3 (4.0-10.5)
[2017-08-20 11:29] LABS: Albumin * 3.7 gm/dl (3.4-5.0); Anion Gap 25.8 mmol/L (6.8-13.8); BUN/Creatinine Ratio 46.6 (9.0-21.6); Bilirubin, Total 0.2 mg/dL (0.0-1.1); Ca. Corrected For Albumin 9.6 mg/dL (8.4-10.2); Calcium * 9.7 mg/dL (7.9-10.9); Carbon Dioxide 11.8 mmol/L (24-32.6); Potassium 3.6 mmol/L (3.4-4.6)
[2017-08-20 11:32] LABS: Urine Bilirubin Negative (NEGATIVE); Urine Blood Negative /ul (NEGATIVE); Urine Ketone Negative (NEGATIVE); Urine Nitrite Negative (NEGATIVE); Urine Protein 15 mg/dL (NEGATIVE); Urine Specific Gravity 1.015 SP.GR. (1.005-1.010); Urine Urobilinogen Normal (NORMAL); Urine pH 5.5 pH (5.0-7.0)
[2017-08-20 11:38] LABS: Urine Appearance Slightly Cloudy; Urine Color Yellow
[2017-08-20 11:39] LABS: Urine Bacteria TRACE; Urine RBC 0-5 /hpf (0-5); Urine WBC 0-5 /hpf (0-5)
[2017-08-20] MEDS: NORMAL SALINE 1,000 ML IV ONE ×2 (12:23→13:32)
[2017-08-20 15:37] VITALS: BP 132/64
== END 2017-08-20 15:35 | disposition home or self-care (01) ==
LOC: ER 10:09
DX: M54.5 Low back pain (principal); N17.9 Acute kidney failure, unspecified; C90.00 Multiple myeloma not having achieved remission; E11.9 Type 2 diabetes mellitus without complications; E03.9 Hypothyroidism, unspecified; I10 Essential (primary) hypertension; Z85.3 Personal history of malignant neoplasm of breast
CPT/HCPCS: 36415; 80053; 81001; 82565; 85025; 86850; 86900; 96374; 96375; 99284; J2405

== ENCOUNTER 2018-05-10 06:18 | Inpatient (IN) ==
[~2018-05-10 06:18] MED LIST: RINGER'S SOLUTION,LACTATED 1,000 ML IV PRN; ceFAZolin SODIUM 1 GM VIAL IV PRN
--- NOTE | 2018-05-10 07:30 | ANES ---
Anesthesia Pre Procedure Eval Vitals/Labs: Last Vital Signs Temp 36.7 C 05/10/18 06:38 Pulse 68 05/10/18 06:38 Resp 18 05/10/18 06:38 BP 122/62 05/10/18 06:38 Pulse Ox 95 05/10/18 06:38 HOME MEDICATIONS Levothyroxine Sodium [Synthroid] 125 mcg PO DAILY 11/26/15 [Last Taken 05/09/18] Promethazine HCl 12.5 mg PO Q6H PRN 06/15/17 [Last Taken Unknown] calcium carbonate 600 mg calcium (1,500 mg) tablet 600 mg PO DAILY tab [Last Taken 05/09/18] letrozole 2.5 mg tablet 2.5 mg PO DAILY 04/17/18 [Last Taken 05/09/18] lisinopril 20 mg-hydrochlorothiazide 12.5 mg tablet 1 tab PO BID 04/17/18 [Last Taken 05/10/18] ferrous sulfate 325 mg (65 mg iron) tablet 325 mg PO DAILY tab 05/03/18 [Last Taken 05/09/18] palbociclib 100 mg capsule 100 mg PO DAILY 05/03/18 [Last Taken 05/09/18] vitamin B complex tablet 1 tab PO DAILY 05/03/18 [Last Taken 05/09/18] HYDROcodone/ACETAMINOPHEN [Hydrocodone-Acetamin 5-325 mg] 1 tab PO Q6H PRN 05/10 [Last Taken 05/10/18 04:00] Allergies/Adverse Reactions: Allergies Allergy/AdvReac Type Severity Reaction Status Date / Time No Known Allergies Allergy Verified 05/10/18 07:00 - Planned Procedure Planned Procedure: Reversed RTS, CR w/pinning Right 5th Medication List Reviewed:: Yes Allergies Verified: Yes Medical History (Last Updated 05/10/18 @ 07:04 by Anusha Goldberg) Finger fracture, right (Acute) Onset Date: 04/11/18 Humerus fracture (Acute) Onset Date: 04/11/18 Hypercholesterolemia (Chronic) Onset Date: Unknown Diabetes mellitus, type II (Chronic) Onset Date: Unknown CHF (congestive heart failure) (Chronic) Onset Date: Unknown Adrenal mass (Chronic) Onset Date: Unknown Hypothyroidism (Chronic) Onset Date: Unknown Hypertension (Chronic) Onset Date: Unknown Metastatic cancer to bone (Acute) Onset Date: Unknown Breast cancer (Acute) Onset Date: Unknown Hypothyroid Surgical History (Last Reviewed 05/10/18 @ 06:59 by Anusha Goldberg) H/O removal of cyst Onset Date: Unknown History of appendectomy Onset Date: Unknown History of arthroplasty of left knee Onset Date: 11/08/07 History of arthroplasty of right knee Onset Date: 07/08/07 History of esophagogastroduodenoscopy (EGD) Onset Date: 06/16/17 Hx of cholecystectomy Onset Date: 1974 Umbilical hernia Onset Date: Unknown Family History (Last Reviewed 05/10/18 @ 07:00 by Anusha Goldberg) Mother Myocardial infarction Diabetes 1.5, managed as type 2 Father CVA (cerebral vascular accident) Brother 2 brothers, unknown cause of Brother 3 brothers Leukemia Cancer Sister COPD (chronic obstructive pulmonary disease) - Family Anesthesia History Family History:: no untoward family reactions to anesthesia, no familial bleeding tendencies, no family history of clotting disorders, no family history of premature - Airway/Neck/Teeth Within Normal Limits:: Yes Denture Type: Full- Upper & Lower Neck Exam: limited range of motion Mallampatti Score: 1 Thyromental (T-M) distance: > 6 cm Mandibulo Hyoid distance: > 3 cm - Respiratory Respiratory: lungs clear Smoking Status: Former smoker Discussed smoking cessation including day of surgery: No Sleep Apnea currently treated: No Sleep Apnea by current assessment: No Discussed Risks/Treatment of SILVIA: No - Cardiovascular Tolerates Activity: Fair Heart Sounds: S1 & S2, Regular - Anesthesia Assessment and Plan ASA Class: PS, III Anesthesia Type Plan: General LMA, Block - Right ultrasound guided interscalene nerve block for postop analgesia
[2018-05-10] MEDS ORDERED: BUPIVACAINE HCL 50 ML VIAL IJ ONE (10:57)
[2018-05-10] MEDS ORDERED: RINGER'S SOLUTION,LACTATED 1,000 ML IV PRN (11:16)
[2018-05-10] MEDS ORDERED: MORPHINE SULFATE 2 MG/ML DISP.SYRIN IV PRN (11:16)
[2018-05-10] MEDS ORDERED: ONDANSETRON HCL/PF 2 MG/ML VIAL IV PRN (11:16)
[2018-05-10] MEDS ORDERED: ACETAMINOPHEN 500 MG TABLET PO PRN (11:16)
[2018-05-10] MEDS ORDERED: ZOLPIDEM TARTRATE 5 MG TABLET PO PRN (11:16)
[2018-05-10] MEDS ORDERED: MAGNESIUM HYDROXIDE 30 ML UDC PO PRN (11:16)
[2018-05-10] MEDS ORDERED: diphenhydrAMINE HCL 50 MG/ML VIAL IV PRN (11:16)
[2018-05-10] MEDS ORDERED: MAG HYDROX/ALUMINUM HYD/SIMETH 30 ML UDC PO PRN (11:16)
--- NOTE | 2018-05-10 11:16 | OR ---
Operative Report - Dictated Report Narrative: Date: 05/10/2018 Physician: True Cr M.D. Co-surgeon: Yvan Hurt M.D. Patrol Commander: Torrey Saha PA-C Preoperative diagnosis: Closed right comminuted proximal humerus fracture, closed right small finger proximal phalanx fracture with intra-articular extension Postoperative diagnosis: Closed right comminuted proximal humerus fracture, closed right small finger proximal phalanx fracture with intra-articular extension Procedure: Reverse right total shoulder arthroplasty, closed reduction percutaneous fixation of right small finger proximal phalanx fracture with intra -articular extension, intraoperative interpretation of x-rays Anesthesia: General plus regional plus local Complications: None Estimated blood loss: 100 Milliliters Specimens: Bone for disposal Retained implants: Beauty Noteduy delta xtend standard cemented monoblock humeral epiphysis size 1 with Size 8 cemented stem, Delta Xtend size 38 + 9 humeral PE cup, Delta Xtend size 38 Glenosphere, Delta Xtend Cementless CARREON coated centered Metaglene, 4.5 mm Delta Xtend locking screws 30,42, 4.5 mm Delta Xtend size 18x2 screws, smooth 0.35 Jo-Ann wires with associated Jurgan's balls Drains: None Indications: Mrs. Allen Is a 72 year-old female who has been followed in my clinic with complaints of shoulder pain consistent proximal humerus fracture as well as a small finger fracture. Physical exam and diagnostic imaging were consistent with his complaints and concern for comminuted displaced proximal humerus fracture as well as a intra-articular right small finger proximal phalanx fracture. Conservative measures have failed including, but not limited to, passage of time, activity modification, medications, physical therapy/home exercise program, or injections. The risks, benefits, and alternatives were discussed in clinic. The risks being , bleeding, infection, blood clots, nerve, tendon, ligament, blood vessel injury, instability, malposition of implants, wear, persistent pain, arthrosis, stiffness, need for prolonged therapy, need for additional procedures, and persistent symptoms. Consent was obtained in the clinic. Procedure: After marking the correct extremity in the preoperative area, a timeout was performed in the operating room. IV antibiotics consisting of Ancef were administered prior to the procedure. A general followed by regional anesthetic was induced by the nurse food processing scientist per my request. This was in the supine position, then the patient was transitioned to a beachchair position with all bony prominences well-padded, head in neutral, the nonoperative arm well supported, and the legs padded with SCDs in place. The operative shoulder was then prepped and draped in a standard sterile fashion. A standard deltopectoral incision was then made. Blunt dissection was carried through the subcutaneous fat in order to encounter the cephalic vein. Cephalic vein was then mobilized in order to pass through the deltopectoral interval. The superior aspect of the pectoralis was released off the humerus. The underlying fascia was elevated exposing the subscapularis tendon. The subscapularis was attached to the lesser tuberosity which was retracted medially. The long head of the biceps was tenotomized and the shoulder was dislocated. A soft tissue release around the inferior and posterior aspect of the humeral head was performed in order to improve the visualization of the proximal humerus. There was noted comminution of the greater tuberosity as well as the humeral head which was significantly displaced making this a 4 part comminuted displaced proximal humerus fracture The proximal humerus was opened and a series of reamers up to a size 8 were utilized. Next attention was turned to the glenoid. The remaining labrum and soft tissues were mobilized off the glenoid and surrounding neck. This allowed for adequate exposure and visualization of the arthritic glenoid. Retractors were then placed in order to expose the glenoid. Utilizing the guide handle a guide wire was placed into the glenoid. This was placed in a slightly inferior posterior position ensuring that this was directed in an inferior angle compared to the face of the glenoid. The circular followed by eccentric reamer was utilized in order to expose the glenoid face down to a subchondral surface which was smooth. Next the central peg was drilled ensuring that there was bone circumferentially. The metaglene was then impacted in the place seating completely. The superior and inferior screw holes were drilled and measured and securely placed. The anterior and posterior nonlocking screws were then drilled and placed and then the superior and inferior locking screws were locked in to place. A size 38 standard Glenosphere was then placed onto the metaglene and the screw was tightened while sequentially impacting and tightening ensuring that the Glenophere was securely seated. Attention was then returned to the humerus. While retracting the surrounding soft tissues, the trial stem was placed in 10 retroversion manner. A series of spacers were utilized finding that a 9 spacer gave appropriate stability. Longitudinal traction resulted in minimal translation. The conjoined tendon was under tension. She was able to reach 90 of abduction and external rotation. Forward flexion was greater than 130 and she was able to adduct fully without impinging onto the scapular neck. Once was felt that we had the appropriate sized implants the shoulder was dislocated and the proximal humerus was thoroughly irrigated. The canal was restricted and a pulsatile vacuum irrigation system was utilized in order to clean the humeral canal. It was then thoroughly dried and the cement was vacuum mixed and placed into a cement gun. The humeral shaft was packed using standard cementing technique and the stem was cemented in the place and 10 retroversion and held while the cement cured. We re-trialed the spacers confirming that we had the appropriate sized spacer and the final polyethylene was then impacted into place. Shoulder was reduced and again was noted to be stable through multiple positions. #2 FiberWire was utilized through the stem in order to mobilize and repair the greater tuberosity down to the shaft. We were unable to repair the lesser tuberosity. The wounds were then thoroughly irrigated. The subscapularis was repaired with #2 Ethibond. The deltopectoral interval was closed with running 0 Vicryl. Subcutaneous tissues closed with 0 Vicryl. The skin was closed with running 3- 0 Vicryl and herb. We then turned our attention to the small finger. There is some mobility and the fracture of the proximal phalanx of the small finger and thus it was felt that this wouldn't be amenable to stabilization. 2 smooth 0.35 Jo-Ann wires were placed antegrade from the joint surface into the shaft using mini C-arm for guidance. These were placed percutaneously. Have percent Marcaine without epinephrine was infused around the skin edges. The wires were cut and Kiarra balls were placed. Final images were obtained. Xeroform, 4 x 4s, and Medipore tape was applied. AlumaFoam, 4 x 4, and Coban was placed around the hand. The patient was then awoken and transferred to postanesthesia care in stable condition. All sponge, needle, and instrument counts were correct prior close the wounds.
[2018-05-10] MEDS ORDERED: PROMETHAZINE HCL 25 MG TABLET PO PRN (11:20)
--- NOTE | 2018-05-10 11:28 | ANES ---
Anesthesia Procedure Note Procedure Note: ANESTHESIA PROCEDURE NOTE Date of Procedure: 05/12/2018. Time of procedure: 809. Performed by: Saran Mckeon CRNA Data Support Specialist: None. Preprocedure diagnosis:Closed right comminuted proximal humerus fracture. Post procedure diagnosis: Same. Procedure: Right ultrasound guided interacalene nerve block for postoperative analgesia. Indications: The patient is a 32 -year-old female, requesting rate and ultrasound-guided interscalene nerve block for postoperative analgesia related to right reverse total shoulder arthroplasty. Findings: See below. Details of the procedure: The tissue over the intended target site was cleansed with ChloraPrep. 1 ml Lidocaine 1 % was infiltrated to the skin and subcutaneous tissue. Under sterile technique and ultrasound guidance a 22-gauge block needle was inserted to the right brachial plexus nerve bundle between the anterior scalene and the middle scalene muscles. 40 mL's of 0.5% bupivacaine plus epinephrine 1:200,000 was injected after negative aspiration for blood. Needle tip and spread of local anesthetic around the brachial plexus was observed throughout the injection with realtime ultrasound visualization. The needle was removed intact. No complications were noted. The images were retained in the hospital medical database . EBL: Minimal. Fluids: N/A. Specimen: N/A. Post procedure condition: The patient tolerated the procedure well. No complications were noted. Thank you for this consultation. Saran Mckeon CRNA
--- NOTE | 2018-05-10 11:29 | ANES ---
Post Anesthesia Discharge - Transfer of Care Transfer of Care handoff given to nurse: Yes - Discharge from PACU Discharge from PACU when meets criteria: Yes - Discharge to ASU Discharge to ASU-no complications/pt stable: Yes
[2018-05-10] MEDS: ceFAZolin SODIUM 1 GM in DEXTROSE 5 % IN WATER 50 ML IV SCH ×4 (13:03→19:03)
[2018-05-10] MEDS: oxyCODONE HCL/ACETAMINOPHEN 1 TAB TABLET PO PRN (16:19)
[2018-05-10] MEDS ORDERED: NON-FORMULARY 1 DOSE DOSE (Lisinopril/Hydrochlorothiazide [Lisinopril-Hctz 20-12.5 Mg Tab] PO SCH (21:00)
[2018-05-10] MEDS ORDERED: SENNOSIDES/DOCUSATE SODIUM 1 TAB TABLET PO SCH (21:00)
[2018-05-10] MEDS: ASPIRIN 81 MG TABLET.DR PO SCH (21:15)
[2018-05-11] MEDS: oxyCODONE HCL/ACETAMINOPHEN 1 TAB TABLET PO PRN ×4 (00:12→13:48)
[2018-05-11] MEDS: ceFAZolin SODIUM 1 GM in DEXTROSE 5 % IN WATER 50 ML IV SCH ×2 (00:16)
[2018-05-11 05:36] LABS: Hematocrit 24.9 % (37.0-47.0); Mean Cell Volume 114.7 fl (78-100); Mean Corpuscular Hemoglobin 35.5 pg (27-31); Mean Corpuscular Hgb Conc 30.9 g/dl (32-36); Mean Platelet Volume 9.8 fl (8-12.5); Platelet Count 135 K/mm3 (150-450); Red Blood Count 2.17 M/mm3 (4.2-5.4); Red Cell Distribution Width 15.2 % (11.5-14.0); White Blood Count 3.2 K/mm3 (4.0-10.5)
[2018-05-11 05:41] LABS: Anion Gap 13.2 mmol/L (6.8-13.8); BUN/Creatinine Ratio 10.1 (9.0-21.6); Calcium * 7.8 mg/dL (7.9-10.9); Carbon Dioxide 25.3 mmol/L (24-32.6); Estimated Creat Clear 29.3; Potassium 3.5 mmol/L (3.4-4.6)
[2018-05-11 06:05] LABS: Hemoglobin 7.7 gm/dL (12.5-16.0)
[2018-05-11] MEDS ORDERED: LEVOTHYROXINE SODIUM 125 MCG TABLET PO SCH (07:00)
[2018-05-11] MEDS: ASPIRIN 81 MG TABLET.DR PO SCH (08:26)
[2018-05-11] MEDS ORDERED: PALBOCICLIB 100 MG PO SCH (09:00)
[2018-05-11] MEDS ORDERED: FERROUS SULFATE 325 MG TABLET PO SCH (09:00)
[2018-05-11] MEDS ORDERED: NON-FORMULARY 1 DOSE DOSE (Letrozole [Femara] 2.5 MG) PO SCH (09:00)
[2018-05-11] MEDS ORDERED: HYDROCHLOROTHIAZIDE 12.5 MG CAPSULE PO SCH (09:00)
[2018-05-11] MEDS ORDERED: VITAMIN B COMP W-C 1 TAB TABLET PO SCH (09:00)
[2018-05-11] MEDS ORDERED: LISINOPRIL 20 MG TABLET PO SCH (09:00)
[2018-05-11] MEDS ORDERED: CALCIUM CARBONATE/VITAMIN D3 1 TAB TABLET PO SCH (09:00)
--- NOTE | 2018-05-11 14:31 | DS ---
(1) Diabetes mellitus type 2 in obese Problem: Chronic (2) Hypothyroidism Problem: Chronic (3) Hypertension Problem: Chronic Qualifiers: (4) Finger fracture, right Problem: Acute (5) Humerus fracture Problem: Acute (6) Diabetes mellitus, type II Problem: Chronic (7) CHF (congestive heart failure) Problem: Chronic (8) Hypothyroidism Problem: Chronic (9) Hypertension Problem: Chronic (10) Breast cancer Problem: Acute Description of Stay: Mrs. Allen was admitted postsurgically for IV antibiotics and pain control. On postoperative day 1 she was feeling well reported minimal pain in the shoulder and moderate pain in her right hand. She was able to work with therapy for passive range of motion of the shoulder and ambulate around in her immobilizer. She felt she was ready and comfortable for discharge in the afternoon. She is discharged with instructions to keep the incision clean and dry. Report any significant drainage. She is to follow up in office in approximately 2 weeks postoperative for staple removal. Her right fifth metacarpal splinted against keep this splint intact and dressings clean dry and intact as well. She was instructed on passive Codman exercises for her shoulder as well as active exercises of her elbow and wrist. She is to wear immobilizer at all times except for bathing and for her exercises. Axillary care was discussed. She was discharged on her home medications as well as Percocet for pain control and aspirin 325 mg twice a day for a month. She is to report any increasing temperatures or change in pain. She was discharged in stable condition with family. Procedures Performed: see notes below List Procedures: Reverse right total shoulder arthroplasty, closed reduction percutaneous pinning of distal fifth metacarpal fracture Results and Findings: Lab Pending Results 05/11/18 05:10: WBC 3.2 L, RBC 2.17 L, Hgb 7.7 L*, Hct 24.9 L, MCV 114.7 H, MCH 35.5 H, MCHC 30.9 L, RDW 15.2 H, Plt Count 135 L, MPV 9.8 05/11/18 05:10: Sodium 140, Plasma Sodium 141, Potassium 3.5, Chloride 105, Carbon Dioxide 25.3, Anion Gap 13.2, BUN 13 D, Creatinine 1.29, Est GFR (Non- Af Amer) 43 L D, BUN/Creatinine Ratio 10.1, Random Glucose 135 H, Calcium 7.8 L Disposition: Home Health Service Condition: Good Discharge Activity: Other - activity no active range of motion of right shoulder only passive immobilizer at all times except bathing and for her exercises Discharge Diet: Consistent carbs, Low salt, Low fat/chol Additional Patient Instructions (free text): Home health with [facility], please call and fax discharge orders to them. Prescriptions (Any new or edited meds): oxyCODONE HCL/ACETAMINOPHEN [Percocet 5 MG/325 MG] 2 tab PO Q4H PRN #60 tablet PRN Reason: Moderate Pain (Pain Scale 4-6) Sennosides/Docusate Sodium [Senokot-S] 2 tab PO HS #30 tab Complete Home Medications List: Complete Home Medication List: Levothyroxine Sodium [Synthroid] 125 mcg PO DAILY 11/26/15 Promethazine HCl 12.5 mg PO Q6H PRN 06/15/17 calcium carbonate 600 mg calcium (1,500 mg) tablet 600 mg PO DAILY tab letrozole 2.5 mg tablet 2.5 mg PO DAILY 04/17/18 lisinopril 20 mg-hydrochlorothiazide 12.5 mg tablet 1 tab PO BID 04/17/18 ferrous sulfate 325 mg (65 mg iron) tablet 325 mg PO DAILY tab 05/03/18 palbociclib 100 mg capsule 100 mg PO DAILY 05/03/18 vitamin B complex tablet 1 tab PO DAILY 05/03/18 HYDROcodone/ACETAMINOPHEN [Hydrocodone-Acetamin 5-325 mg] 1 tab PO Q6H PRN 05/10 Aspirin [Aspirin Enteric Coated] 325 mg PO BID tablet. 05/11/18 Sennosides/Docusate Sodium [Senokot-S] 2 tab PO HS #30 tab 05/11/18 oxyCODONE HCL/ACETAMINOPHEN [Percocet 5 MG/325 MG] 2 tab PO Q4H PRN #60 tablet 05/11/18
[2018-05-11 15:05] VITALS: BP 109/63
[2018-05-11] MEDS ORDERED: ASPIRIN 325 MG TABLET.DR PO SCH (21:00)
== END 2018-05-11 15:35 | disposition home health service (06) | DRG 483 ==
LOC: MS 06:18
PROVIDERS: ADMIT Orthopaedic Surgery; ATTEND Orthopaedic Surgery
CPT/HCPCS: 36415; 73030; 80048; 85025; 85027; 97116; 97140; 97161; 97165; J2405

== ENCOUNTER 2019-10-25 21:38 | Observation (INO) ==
[2019-10-25] MEDS ORDERED: ONDANSETRON HCL/PF 2 MG/ML VIAL IV ONE (21:48)
--- NOTE | 2019-10-25 21:56 | ERNOTE ---
Medical Problem HPI - Narrative Date of Service: 10/25/19 - General Chief Complaint: General Assessment Time Seen by Provider: 10/25/19 21:40 Source: RN/MD, EMS Exam Limitations: clinical condition - Immun/Allergies/Home Medications Immunizations: IMMUNIZATION HX Immunizations Up to Date Yes History of Influenza Vaccine No Hx Pneumococcal Vaccination No Allergies/Adverse Reactions: Allergies No Known Allergies Allergy (Verified 09/26/19 15:21) Home Medications: HOME MEDICATIONS calcium carbonate 600 mg calcium (1,500 mg) tablet 600 mg PO DAILY tab 04/17/18 [Last Taken 05/09/18] letrozole 2.5 mg tablet 2.5 mg PO DAILY 04/17/18 [Last Taken 05/09/18] ferrous sulfate 325 mg (65 mg iron) tablet 325 mg PO DAILY tab 05/03/18 [Last Taken 05/09/18] vitamin B complex 1 tab PO DAILY 05/03/18 [Last Taken 05/09/18] Aspirin [Aspirin Enteric Coated] 325 mg PO BID tablet. 05/11/18 [Last Taken Unknown] Sennosides/Docusate Sodium [Senokot-S] 2 tab PO HS #30 tab 05/11/18 [Last Taken Unknown] levothyroxine 75 mcg tablet 75 mcg PO DAILY #90 tab 08/20/19 [Last Taken Unknown] hydrochlorothiazide 12.5 mg tablet 12.5 mg PO DAILY #90 tab 08/21/19 [Last Taken Unknown] lisinopril 40 mg tablet 40 mg PO DAILY #90 tab 08/24/19 [Last Taken Unknown] Denosumab [Xgeva] 120 mg SC 09/04/19 [Last Taken Unknown] Fulvestrant 250 mg IM 09/04/19 [Last Taken Unknown] prochlorperazine maleate 5 mg tablet 5 mg PO Q8H PRN #30 tab 09/26/19 [Last Taken Unknown] ondansetron 8 mg disintegrating tablet See Rx Instructions .ROUTE .COMPLEX #30 each 10/17/19 [Last Taken Unknown] simethicone 180 mg capsule 180 mg PO DAILY PRN #30 cap 10/18/19 [Last Taken Unknown] - History of Present History Narrative: Patient is a transfer from [facility] by Dr. Farzaneh Bowles will be admitting for comfort care patient is diagnosed with metastatic breast brain and bone cancer Date (Duration): 10/25/19 Time (Timing): 21:47 Timing: constant Severity: severe Review of Systems - Review of Systems Constitutional: Present: fatigue, malaise, weight loss EYE: Present: no symptoms reported ENT: Present: no symptoms reported Respiratory: Present: shortness of breath Cardiology: Present: no symptoms reported Gastrointestinal/Abdominal: Present: nausea, vomiting Genitourinary: Present: no symptoms reported Musculoskeletal: Present: back pain Skin: Present: no symptoms reported, other Neurological: Present: weakness All Other Systems: All systems neg except as marked Medical History (Last Reviewed 10/25/19 @ 21:48 by Michel Holt MD) Hypercholesterolemia (Chronic) Onset Date: Unknown CHF (congestive heart failure) (Chronic) Onset Date: Unknown Adrenal mass (Chronic) Onset Date: Unknown Hypothyroidism (Chronic) Onset Date: Unknown Hypertension (Chronic) Onset Date: Unknown Metastatic cancer to bone (Acute) Onset Date: Unknown Breast cancer (Acute) Onset Date: Unknown Left Breast Hypothyroid Diabetes mellitus, type II (Resolved) Onset Date: Unknown Finger fracture, right (Resolved) Onset Date: 04/11/18 small finger Humerus fracture (Resolved) Onset Date: 04/11/18 Surgical History: Surgical History (Last Reviewed 10/25/19 @ 21:48 by Michel Holt MD) Status post reverse arthroplasty of shoulder Onset Date: ~05/10/18 Reverse right total shoulder arthroplasty, closed reduction percutaneous fixation of right small finger proximal phalanx fracture with intra-articular extension Dr. Cr H/O removal of cyst Onset Date: Unknown from left breast Benign-done in [place], [id number] lobular carcinoma 2002, 03/11/08 History of appendectomy Onset Date: Unknown History of arthroplasty of left knee Onset Date: 11/08/07 Dr Doran History of arthroplasty of right knee Onset Date: 07/08/07 Dr Doran History of esophagogastroduodenoscopy (EGD) Onset Date: 06/16/17 Bagan-clotest negative. 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 Hx of cholecystectomy Onset Date: 1974 Umbilical hernia Onset Date: Unknown 5 repairs Family History: Family History (Last Reviewed 10/25/19 @ 21:44 by Maribel Gambino RN) Mother , 81 Myocardial infarction Diabetes 1.5, managed as type 2 Father , 92 CVA (cerebral vascular accident) Brother , age 70 and 80 2 brothers, unknown cause of Brother 3 brothers Leukemia Cancer colon Sister , 54 COPD (chronic obstructive pulmonary disease) Social History: (Last Reviewed 10/25/19 @ 21:44 by Maribel Gambino RN) Social History: adopted: No residential: No Marital status: household members: spouse number of children: 5 number of grandchildren: 4 current occupational status: 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 Highest education level completed: 8th grade Service: No Tobacco: Smoking Status: Former smoker Tobacco: How many years used: 50 how long ago did patient quit smokin years Alcohol: alcohol intake: never Substance Use: substance use type: does not use Dietary Habits: caffeine: Yes Type: coffee, tea Physical Exam - Physical Exam General Appearance: Present: severe distress, lethargic, cachetic Head Exam: Present: normal inspection Eye Exam: Normal inspection: bilateral Ears, Nose, Throat: Present: normal ENT inspection Neck: Present: normal inspection Respiratory: Present: respiratory distress, wheezing Cardiovascular/Chest: Present: regular rate, rhythm Gastrointestinal/Abdominal: Present: normal bowel sounds Back Exam: Present: normal inspection Extremity Exam: Present: normal inspection Neurological Exam: Present: alert Skin Exam: Present: pallor Progress - Vital Signs Patient's Vital Signs:: I have reviewed the patient's vital signs. Vital Signs: Vital Signs 10/25/19 21:42 Temperature 36.3 C Pulse Rate 107 H Respiratory Rate 17 Blood Pressure 95/67 O2 Sat by Pulse Oximetry 95 - Progress/Reassessment Chief Complaint: General Assessment Plan - Plan Plan: Admit to floor for comfort care Departure Clinical Impression: Metastatic malignant neoplasm to breast - Departure Disposition: Short Term Hospital Inpatient Condition: Serious
[2019-10-25] MEDS ORDERED: POLYVINYL ALCOHOL 150 DROP BTL EACHEYE PRN (23:15)
[2019-10-25] MEDS ORDERED: ONDANSETRON HCL/PF 2 MG/ML VIAL IV PRN (23:15)
[2019-10-25] MEDS ORDERED: ACETAMINOPHEN 325 MG TABLET PO PRN (23:15)
[2019-10-25] MEDS ORDERED: SIMETHICONE 80 MG TAB.CHEW PO PRN (23:18)
[2019-10-25] MEDS ORDERED: PROCHLORPERAZINE MALEATE 10 MG TABLET PO PRN (23:26)
[2019-10-25] MEDS ORDERED: ONDANSETRON 8 MG TAB.RAPDIS PO PRN (23:30)
--- NOTE | 2019-10-26 08:24 | HP ---
Chief Complaint - Chief Complaint Date of Service: 10/26/19 Time of Service: 08:07 Chief Complaint: weakness History of Present Illness: Pt with a PMHx of metastatic breast cancer presented to the [facility] ED after having multiple falls at home. She had been undergoing treatment for breast cancer, which was unsuccessful. Family has been trying to have her placed at the [facility] for potential hospice benefits. She has been falling frequently, and her family isn't able to care for her at home. She's having some abdominal pain. CT of her chest, abdomen, pelvis were done in [place], which showed extensive mediastinal and hilar lymphadenopathy, possible adrenal mets, bone metastases. Labs showed hyperkalemia with potassium of 5.2. Medical History (Last Reviewed 10/25/19 @ 22:43 by Simona Taylor RN) Hypercholesterolemia (Chronic) Onset Date: Unknown CHF (congestive heart failure) (Chronic) Onset Date: Unknown Adrenal mass (Chronic) Onset Date: Unknown Hypothyroidism (Chronic) Onset Date: Unknown Hypertension (Chronic) Onset Date: Unknown Metastatic cancer to bone (Acute) Onset Date: Unknown Breast cancer (Acute) Onset Date: Unknown Left Breast Hypothyroid Diabetes mellitus, type II (Resolved) Onset Date: Unknown Finger fracture, right (Resolved) Onset Date: 04/11/18 small finger Humerus fracture (Resolved) Onset Date: 04/11/18 Surgical History: Surgical History (Last Reviewed 10/25/19 @ 22:43 by Simona Taylor RN) Status post reverse arthroplasty of shoulder Onset Date: ~05/10/18 Reverse right total shoulder arthroplasty, closed reduction percutaneous fixation of right small finger proximal phalanx fracture with intra-articular extension Dr. Cr H/O removal of cyst Onset Date: Unknown from left breast Benign-done in [place], 89-[id number] lobular carcinoma 2002, 03/11/08 History of appendectomy Onset Date: Unknown History of arthroplasty of left knee Onset Date: 11/08/07 Dr Doran History of arthroplasty of right knee Onset Date: 07/08/07 Dr Doran History of esophagogastroduodenoscopy (EGD) Onset Date: 06/16/17 Bagan-clotest negative. 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 Hx of cholecystectomy Onset Date: 1974 Umbilical hernia Onset Date: Unknown 5 repairs Family History: Family History (Last Reviewed 10/25/19 @ 22:43 by Simona Taylor RN) Mother , 81 Myocardial infarction Diabetes 1.5, managed as type 2 Father , 92 CVA (cerebral vascular accident) Brother , age 70 and 80 2 brothers, unknown cause of Brother 3 brothers Leukemia Cancer colon Sister , 54 COPD (chronic obstructive pulmonary disease) Social History: (Last Reviewed 10/25/19 @ 22:44 by Simona Taylor RN) Social History: adopted: No alf: No Marital status: household members: spouse number of children: 5 number of grandchildren: 4 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 Absent: Abdominal Pain Genitourinary: Present: No Symptoms Reported Musculoskeletal: Present: No Symptoms Reported Neurological: Present: Weakness Immunizations: IMMUNIZATION HX Immunizations Up to Date Yes History of Influenza Vaccine No Hx Pneumococcal Vaccination No Allergies/Adverse Reactions: Allergies Allergy/AdvReac Type Severity Reaction Status Date / Time No Known Allergies Allergy Verified 09/26/19 15:21 Home Medications: HOME MEDICATIONS calcium carbonate 600 mg calcium (1,500 mg) tablet 600 mg PO DAILY tab 04/17/18 [Last Taken 05/09/18] letrozole 2.5 mg tablet 2.5 mg PO DAILY 04/17/18 [Last Taken 05/09/18] ferrous sulfate 325 mg (65 mg iron) tablet 325 mg PO DAILY tab 05/03/18 [Last Taken 05/09/18] vitamin B complex 1 tab PO DAILY 05/03/18 [Last Taken 05/09/18] Aspirin [Aspirin Enteric Coated] 325 mg PO BID tablet. 05/11/18 [Last Taken Unknown] Sennosides/Docusate Sodium [Senokot-S] 2 tab PO HS #30 tab 05/11/18 [Last Taken Unknown] levothyroxine 75 mcg tablet 75 mcg PO DAILY #90 tab 08/20/19 [Last Taken Unknown] hydrochlorothiazide 12.5 mg tablet 12.5 mg PO DAILY #90 tab 08/21/19 [Last Taken Unknown] lisinopril 40 mg tablet 40 mg PO DAILY #90 tab 08/24/19 [Last Taken Unknown] prochlorperazine maleate 5 mg tablet 5 mg PO Q8H PRN #30 tab 09/26/19 [Last Taken Unknown] ondansetron 8 mg disintegrating tablet See Rx Instructions .ROUTE .COMPLEX #30 each 10/17/19 [Last Taken Unknown] simethicone 180 mg capsule 180 mg PO DAILY PRN #30 cap 10/18/19 [Last Taken Unknown] Exam - Exam Vital Signs: Vital Signs - Last Taken Temp 36.8 C 10/25/19 22:10 Pulse 102 H 10/25/19 22:10 Resp 20 10/25/19 22:10 BP 117/65 10/25/19 22:10 Pulse Ox 93 10/25/19 22:10 Constitutional: Present: Alert, Cooperative, Elderly - appears frail Respiratory: Present: lungs clear, normal breath sounds, no respiratory distress Cardiovascular/Chest: Present: regular rate, rhythm Abdomen: Present: tender, hypoactive Extremity: Present: other - bruising of bilateral knees, left greater than right Neurologic: Present: normal mood/affect Assessment/Plan - Assessment/Plan (1) Metastatic cancer to bone Assessment: She received her last treatment on October 01. Despite treatment, her cancer has spread. Oncology note from 03 October shows rapidly progressive metastatic cancer to the brain, mediastinum. She's been unintentionally losing weight. Family has been trying to get her into hospice, and will appreciate case management assistance with this today. She has been wanting to go to the [facility] in [place]. She has been living at home with [facility] home health, but her has dementia and family is unable to care for her at home. She has bruising on her knees, so she is not safe to be at home. Comfort measure orders have been placed. Anders was placed in the ED last night, and she wishes for this to remain in place. If arrangements can be made, she is okay to go to the facility today. Problem: Acute (2) Metastatic malignant neoplasm to breast Problem: Acute (3) Frequent falls Problem: Acute (4) Adrenal mass Problem: Chronic (5) Hyperkalemia Assessment: Potassium of 5.2 on labs in [facility]. Since we are pursuing comfort measures only, treatment not needed. Problem: Acute
[2019-10-26] MEDS: MORPHINE SULFATE 10 MG/0.5 ML SYRINGE PO PRN ×4 (11:17→21:10)
[2019-10-27] MEDS ORDERED: POLYETHYLENE GLYCOL 3350 17 GM PACKET PO PRN (09:33)
[2019-10-27] MEDS ORDERED: SENNOSIDES/DOCUSATE SODIUM 1 TAB TABLET PO PRN (09:34)
[2019-10-27] MEDS ORDERED: BISACODYL 10 MG SUPP.RECT RC PRN (09:34)
--- NOTE | 2019-10-27 09:37 | PN ---
Subjective - Date and Time Seen Date: 10/27/19 Time: 09:18 Subjective Narrative: Shani reports no new concerns this morning. She is unable to physically move herself, and is asking to be moved. She's still having some abdominal pain, but she does not feel like it's uncontrolled. Objective - Review of Systems Generalized/Overall Review: Reports: No Symptoms Reported Abdominal: Reports: Abdominal Pain - Vitals Vitals: Last Vital Signs Temp 36.8 C 10/25/19 22:10 Pulse 102 H 10/25/19 22:10 Resp 20 10/25/19 22:10 BP 117/65 10/25/19 22:10 Pulse Ox 93 10/25/19 22:10 - Exam Constitutional: Present: Alert, No distress, Elderly Respiratory: Present: normal breath sounds, no respiratory distress Cardiovascular/Chest: Present: tachycardia Abdomen: Present: tender Assessment/Plan - Problems/Diagnosis (1) Metastatic cancer to bone Problem: Acute Narrative: She and family have decided to pursue comfort measures only. Continue morphine for pain, which she used 4 times yesterday. (2) Metastatic malignant neoplasm to breast Problem: Acute (3) Frequent falls Problem: Acute Narrative: Family unable to care for her at home. she has significant bruising of her knees. Grateful for [facility] assistance in finding placement. Family would like her to go to [facility] for hospice. (4) Adrenal mass Problem: Chronic (5) Mediastinal lymphadenopathy Problem: Acute Narrative: Strongly suspect mets from breast cancer, which did not respond to treatment and rapidly progressed. (6) Hilar lymphadenopathy Problem: Acute (7) Hyperkalemia Problem: Acute (8) Abdominal pain Problem: Acute Narrative: Ddx includes rapidly progressing mets, constipation. Will add miralax, senna, dulcolax prn for her to use if she'd like.
[2019-10-27] MEDS: MORPHINE SULFATE 10 MG/0.5 ML SYRINGE PO PRN ×2 (13:09→16:54)
[2019-10-27] MEDS: ATROPINE SULFATE 50 DROP BTL SL PRN ×2 (13:10→23:04)
[2019-10-27] MEDS: NYSTATIN 15 APPL TUBE TP SCH (20:16)
[2019-10-28] MEDS: MORPHINE SULFATE 10 MG/0.5 ML SYRINGE PO PRN ×6 (06:37→20:37)
[2019-10-28] MEDS: NYSTATIN 15 APPL TUBE TP SCH ×2 (08:19→22:11)
--- NOTE | 2019-10-28 08:56 | PN ---
Subjective - Date and Time Seen Date: 10/28/19 Time: 08:51 Subjective Narrative: Patient has audible rattling. She is more somnolent than yesterday, and does not make eye contact. Decreased urine output. Objective - Review of Systems Generalized/Overall Review: Reports: No Symptoms Reported - Does not answer questions to contribute to ROS - Vitals Vitals: Last Vital Signs Temp 36.5 C 10/28/19 01:22 Pulse 107 H 10/28/19 01:22 Resp 22 H 10/28/19 01:22 BP 85/47 L 10/28/19 01:22 Pulse Ox 95 10/28/19 01:22 - Exam Constitutional: Present: No distress, Elderly Respiratory: Present: no respiratory distress, rhonchi Cardiovascular/Chest: Present: tachycardia, other - unable to auscultate heart sounds over her upper respiratory rhonchi Abdomen: Present: nondistended Extremity: Present: other - significant bruising of left knee Eye contact: Present: other - does not make eye contact, attempts to speak but is incoherent Cauti Physician Documentation - Urinary Catheter Management Urethral (Mcnamara) Urethral Indwelling: Yes Reason for Continuing Indwelling Catheter: End of life care Assessment/Plan - Problems/Diagnosis (1) Metastatic cancer to bone Problem: Acute Narrative: She has rapidly progressing metastatic breast cancer that did not respond to treatment with Ibranz and Fosladex, and she and her family have decided to pursue comfort measures. Family had started hospice arrangements prior to this admission, but her condition deteriorated before they were able to get placement. She was having multiple falls at home. They would like for her to go to [facility], and case management is assisting with this. Today is Tuesday, so she will remain here until arrangements can be made. Her condition has worsened since yesterday, with decreased responsiveness and audible respiratory rhonchi. PO intake is very limited. I anticipate her life span is limited to days. Continue morphine, lorazepam, atropine, and bowel regimen as needed. Will add scopolamine to help further with secretions. (2) Metastatic malignant neoplasm to breast Problem: Acute (3) Mediastinal lymphadenopathy Problem: Acute (4) Frequent falls Problem: Acute (5) Adrenal mass Problem: Chronic (6) Hilar lymphadenopathy Problem: Acute (7) Hyperkalemia Problem: Acute (8) Abdominal pain Problem: Acute
[2019-10-28] MEDS ORDERED: SCOPOLAMINE HYDROBROMIDE 1.5 MG PATC TD SCH (09:00)
[2019-10-28] MEDS: ATROPINE SULFATE 50 DROP BTL SL PRN ×4 (12:06→20:37)
[2019-10-29] MEDS: ATROPINE SULFATE 50 DROP BTL SL PRN ×6 (01:44→19:48)
[2019-10-29] MEDS: NYSTATIN 15 APPL TUBE TP SCH ×2 (08:49→21:20)
[2019-10-29] MEDS: MORPHINE SULFATE 10 MG/0.5 ML SYRINGE PO PRN ×5 (09:43→19:47)
--- NOTE | 2019-10-29 12:50 | PN ---
Subjective - Date and Time Seen Date: 10/29/19 Time: 08:00 Subjective Narrative: She is now unresponsive. Has had very little urine output via her lezama. Objective - Review of Systems Generalized/Overall Review: Reports: No Symptoms Reported - unable to contribute to ROS due to decreased mentation - Vitals Vitals: Last Vital Signs Temp 36.5 C 10/28/19 01:22 Pulse 107 H 10/28/19 01:22 Resp 22 H 10/28/19 01:22 BP 85/47 L 10/28/19 01:22 Pulse Ox 95 10/28/19 01:22 - Exam Constitutional: Present: No distress, Obtunded, Elderly Respiratory: Present: no respiratory distress, rhonchi Cardiovascular/Chest: Present: regular rate, rhythm Extremity: Absent: lower extremity edema Cauti Physician Documentation - Urinary Catheter Management Urethral (Lezama) Urethral Indwelling: Yes Assessment/Plan - Problems/Diagnosis (1) Metastatic cancer to bone Problem: Acute Narrative: She has rapidly progressing metastatic breast cancer that did not respond to treatment with Ibranz and Fosladex, and she and her family decided to pursue comfort measures last week. Family had started hospice arrangements prior to this admission, but her condition deteriorated before they were able to get placement. She was having multiple falls at home. Her condition is deteriorating, and she is now obtunded. Has not had po intake in a couple of days. Urine output has further decreased and is minimal. She could pass within 24 hours, and recommend she not be transferred to [place]. Continue comfort measure medications. (2) Metastatic malignant neoplasm to breast Problem: Acute (3) Mediastinal lymphadenopathy Problem: Acute (4) Frequent falls Problem: Acute (5) Adrenal mass Problem: Chronic (6) Hilar lymphadenopathy Problem: Acute (7) Hyperkalemia Problem: Acute (8) Abdominal pain Problem: Acute
[2019-10-30] MEDS: MORPHINE SULFATE 10 MG/0.5 ML SYRINGE PO PRN ×5 (00:04→09:10)
[2019-10-30] MEDS: ATROPINE SULFATE 50 DROP BTL SL PRN ×10 (00:04→15:09)
[2019-10-30] MEDS: LORazepam 2 MG/ML DISP.SYRIN IV PRN ×4 (06:31→13:40)
--- NOTE | 2019-10-30 08:36 | PN ---
Subjective - Date and Time Seen Date: 10/30/19 Time: 08:36 Subjective Narrative: Nursing reports more "gurgling" respiratory sounds. She has not regained consciousness, and has had very little urine output. Objective - Review of Systems Generalized/Overall Review: Reports: No Symptoms Reported - Unable to contribute to ROS due to mental status - Vitals Vitals: Last Vital Signs Temp 36.5 C 10/28/19 01:22 Pulse 107 H 10/28/19 01:22 Resp 22 H 10/28/19 01:22 BP 85/47 L 10/28/19 01:22 Pulse Ox 95 10/28/19 01:22 - Exam Constitutional: Present: No distress, Elderly Respiratory: Present: rhonchi Cardiovascular/Chest: Present: other - unable to auscultate cardiac sounds over upper respiratory rhonchi Abdomen: Present: soft, other - lezama in place with no urine in reservoir Thoughts: Present: other - does not interact or respond to voice or touch Cauti Physician Documentation - Urinary Catheter Management Urethral (Lezama) Urethral Indwelling: Yes Assessment/Plan - Problems/Diagnosis (1) Metastatic cancer to bone Problem: Acute Narrative: She has rapidly progressing metastatic breast cancer that did not respond to treatment with Ibranz and Fosladex, and she and her family decided to pursue comfort measures last week. Imaging showed possible mets of the brain, lung, adrenal glands. Family had started hospice arrangements prior to this admission, but her condition deteriorated before they were able to get placement. She was having multiple falls at home. Her condition deteriorated further 10/29/19, and she has obtunded for over 24 hours. Has not had po intake in a several of days. Urine output has further decreased and is minimal. Anticipate she may pass at any time. Continue comfort measure medications. (2) Metastatic malignant neoplasm to breast Problem: Acute (3) Mediastinal lymphadenopathy Problem: Acute (4) Frequent falls Problem: Acute (5) Adrenal mass Problem: Chronic (6) Hilar lymphadenopathy Problem: Acute (7) Brain mass Problem: Acute Narrative: Found on CT in August, suspicious for mets. (8) Hyperkalemia Problem: Acute (9) Abdominal pain Problem: Acute
[2019-10-30] MEDS: NYSTATIN 15 APPL TUBE TP SCH (09:13)
[2019-10-30] MEDS: MORPHINE SULFATE 2 MG/ML DISP.SYRIN IV PRN ×5 (10:18→15:08)
--- NOTE | 2019-10-30 16:13 | DS ---
Discharge Summary - Provider Primary Care Provider: Farzaneh Bowles Admitting Clinician: Farzaneh Bowles Attending Physician on Admission: Farzaneh Bowles - Date and Time Date of : 10/30/19 Time of : 15:22 - Diagnosis/Cause of (1) Metastatic cancer to bone Problems: Acute (2) Metastatic malignant neoplasm to breast Problems: Acute (3) Mediastinal lymphadenopathy Problems: Acute (4) Frequent falls Problems: Acute (5) Adrenal mass Problems: Chronic (6) Hilar lymphadenopathy Problems: Acute (7) Brain mass Problems: Acute (8) Hyperkalemia Problems: Acute (9) Abdominal pain Problems: Acute - Summary Details (narrative): Patient with a PMHx of metastatic breast cancer presented to the [facility] ED after having multiple falls at home. She had been undergoing treatment for breast cancer, which was unsuccessful. Her oncologist recommend she pursue hospice benefits last month, after her cancer had aggressively progressed. Family has been trying to have her placed at the [facility] for potential hospice benefits. She has been falling frequently, and her family isn't able to care for her at home. She's having some abdominal pain. CT of her chest, abdomen, pelvis were done in [place], which showed extensive mediastinal and hilar lymphadenopathy, possible adrenal mets, bone metastases. She was admitted to our facility late night, for potential transfer to [facility]. She and her family wanted comfort measures only. [facility] was assisting with potential transfer. Throughout the weekend, her mentation, po intake, and urine output decreased. She did not regain consciousness after 10/28/10. She was given morphine, ativan, scopolamine, atropine to help keep her comfortable. Due to her deterioration, it was felt she may pass at any time, and transfer process was discontinued. She on the afternoon of 10/30/19. Procedures Performed: none - Additional Data Practitioner(Attending/PCP) notified: Yes Was code activated: No
[2019-10-30 17:01] VITALS: BP 0/0
== END 2019-10-30 16:56 | disposition expired ==
LOC: ER 21:38 → MS 21:43 → INTOOBSV 21:43 → MS 22:10
PROVIDERS: ADMIT Family Medicine; ATTEND Family Medicine
DX: R10.9 Unspecified abdominal pain; C50.919 Malignant neoplasm of unspecified site of unspecified female breast; R59.0 Localized enlarged lymph nodes; R29.6 Repeated falls; C79.51 Secondary malignant neoplasm of bone; G93.9 Disorder of brain, unspecified; E87.5 Hyperkalemia; E27.9 Disorder of adrenal gland, unspecified
CPT/HCPCS: 96374; 96375; 99284; 99285; G0378; J2405